=== PATIENT | female | born 1965 | race Native Hawaiian/Other Pacific Islander ===

== ENCOUNTER 2020-04-15 13:59 | Emergency (ER) | payer OTHER ==
[~2020-04-15] VITALS: Ht 167.6 cm; Wt 104.3 kg
[2020-04-15 14:05] VITALS: TEMP 98.3
[2020-04-15 16:12] VITALS: BP 134/89
== END 2020-04-15 16:13 | disposition home or self-care (01) ==
LOC: ED 13:59
DX: S93.492A Sprain of other ligament of left ankle, initial encounter (principal); Y93.E1 Activity, personal bathing and showering; Y93.89 Activity, other specified; Y92.012 Bathroom of single-family (private) house as the place of occurrence of the external cause
CPT/HCPCS: 99282